=== PATIENT | female | born 1950 | race Two or more races ===

== ENCOUNTER 2024-08-28 20:48 | Emergency (ER) | payer OTHER ==
[~2024-08-28] VITALS: Ht 160 cm; Wt 68.6 kg
[2024-08-28] MEDS: DexAMETHasone SOD PHOS 10MG/1ML VIAL INJ IM ONE (21:37)
[2024-08-28] MEDS: ALBUTEROL SULF 2.5 MG/0.5ML(0.5%) NEB SOLN NEB ONE (21:38)
[2024-08-28] MEDS: IPRATROPIUM BROM 0.5 MG/2.5ML INH SOL NEB ONE (21:38)
[2024-08-28 21:40] VITALS: PULSE 86; RESP 18; O2SAT 92
--- NOTE | 2024-08-28 22:00 | DVH ---
CHEST RADIOGRAPH Indication: COUGH, SATS 92 ON ROOM AIR Technique: Single frontal view of the chest was obtained COMPARISON: None FINDINGS: Lines and Tubes: None Lungs: Clear Pleura: No effusion. No pneumothorax. Cardiomediastinal contours: Unremarkable Bones: Unremarkable IMPRESSION: No abnormality demonstrated.
[2024-08-28 22:05] LABS: COVID19 ANTIGEN SOFIA FIA NEGATIVE (NEGATIVE); Rapid Influenza A Negative (Negative); Rapid Influenza B Negative (Negative)
[2024-08-29] MEDS ORDERED: BENZ100C97 PO (00:07)
[2024-08-29] MEDS ORDERED: ALBU108A5 IN (00:07)
--- NOTE | 2024-08-29 00:07 | ED.PDOC ---
SOB-HPI HPI Comments This patient is a 74-year-old female with a 30+ year pack history of smoking who arrives to the ED today with complaints of consistent coughing over the past five days. Patient states the cough and came on and she is in coughing throughout the day ever since. Patient denies any fever nausea or vomiting. Patient denies any ill feelings. Patient denies any definitive shortness a breath concerns. Vital signs were stable on arrival. Chief Complaint: Shortness of Breath Time Seen by MD: 21:11 Reviewed notes: Nurses Notes Information Source: Patient Mode of Arrival: Ambulatory Severity: Moderate Timing: Days Duration: Since onset Context: At Rest PE Risk Factors: None History of: None Prehospital treatment: None Modifying Factors: Nothing Associated Signs and Symptoms: Cough If cough with SOB: Non-Productive Past Medical History PAST MEDICAL HISTORY: Denies Surgical History: Denies all surgeries DIETETIC TECHNICIAN REGISTERED History: No Pertinent DIETETIC TECHNICIAN REGISTERED History Family History Family History: Reviewed,noncontributory to illness, No family hx of Cancer, No family hx of DM, No family hx of Heart spencer, No family hx of HTN, No family hx ofKidney spencer, No family hx of Liver spencer, No family hx of Lung spencer, No family hx of Stroke Social History Smoker: Cigarettes, Greater Than 1 Pack/Day Alcohol: Denies ETOH Use Drugs: Denies Drug Use Lives In: Home Constitutional: denies: chills, diaphoresis, fatigue, fever, malaise, sweats, weakness, others EENTM: denies: blurred vision, double vision, ear bleeding, ear discharge, ear drainage, ear pain, ear ringing, eye pain, eye redness, hearing loss, mouth pain, mouth swelling, nasal discharge, nose bleeding, nose congestion, nose pain, photophobia, tearing, throat pain, throat swelling, voice changes, others Respiratory: reports: cough; denies: hemoptysis, orthopnea, SOB at rest, shortness of breath, SOB with excertion, stridor, wheezing, others Cardiovascular: denies: chest pain, dizzy spells, diaphoresis, Dyspnea on exertion, edema, irregular heart beat, left arm pain, lightheadedness, palpitations, PND, syncope, others Gastrointestinal: denies: abdomen distended, abdominal pain, blood streaked bowels, constipated, diarrhea, dysphagia, difficulty swallowing, hematemesis, melena, nausea, poor appetite, poor fluid intake, rectal bleeding, rectal pain, vomiting, others Genitourinary: denies: abnormal vagina bleeding, burning, dyspareunia, dysuria, flank pain, frequency, hematuria, incontinence, pain, , vagina discharge, urgency, others Neurological: denies: dizziness, fainting, headache, left sided numbness, left sided weakness, numbness, paresthesia, pre-existing deficit, right sided numbness, right sided weakness, seizure, speech problems, tingling, tremors, weakness, others Musculoskeletal: denies: back pain, gout, joint pain, joint swelling, muscle pa in, muscle stiffness, neck pain, others Integumetry: denies: bruises, change in color, change in hair/nails, dryness, laceration, lesions, lumps, rash, wounds, others Allergic/Immunocompromised: denies: Difficulty Healing, Frequent Infections, Hives, Itching, others Hematologic/Lymphatic: denies: anemia, blood clots, easy bleeding, easy bruising, swollen glands, others Endocrine: denies: excessive hunger, excessive sweating, excessive thirst, excessive urination, flushing, intolerance to cold, intolerance to heat, unexplained weight gain, unexplained weight loss, others Psychiatric: denies: anxiety, bipolar disorder, depression, hopeless, panic disorder, schizophrenia, sleepless, suicidal, others Physical Exam General Appearance: Mild Distress (Patient had some mild distress at time of evaluation. I did not visualize the patient coughing throughout my evaluation.), Normal HEENT: Normal ENT Inspection, Pharynx Normal, TMs Normal Neck: Full Range of Motion, Non-Tender, Normal, Normal Inspection Respiratory: Chest Non-Tender, Lungs Clear, No Accessory Muscle Use, No Respiratory Distress, Normal Breath Sounds, Other ( Unremarkable auscultation bilateral lung masters.) Cardiovascular: No Edema, No JVD, No Murmur, No Gallop, Normal Peripheral Pulses, Regular Rate/Rhythm Breast Exam: Deferred Gastrointestinal: No Organomegaly, Non Tender, No Pulsatile Mass, Normal Bowel Sounds, Soft Genitalia: Deferred Pelvic: Deferred Rectal: Deferred Extremities: NOT DONE Neurologic: Alert, No Motor Deficits, Normal Affect, Normal Mood, No Sensory Deficits Cerebellar Function: Normal Reflexes: Normal Skin: Dry, Normal Color, Warm Lymphatic: No Adenopathy Was a procedure done? Was a procedure done?: No Differential Dx Differential Diagnosis: Bronchitis, Pneumonia, URI, Other ( Cough) X-Ray, Labs, Meds, VS Vital Signs Date Time Temp Pulse Resp B/P (MAP) Pulse Ox O2 Delivery O2 Flow Rate FiO2 08/28/24 21:40 86 18 92 Nasal Cannula* 2 28 08/28/24 21:39 16 92 Room Air* 0 21 08/28/24 21:05 98.8 86 18 120/79 (93) 92 Lab Test 08/28/24 21:13 Range/Units Influenza Type A Antigen Negative Negative Influenza Type B Antigen Negative Negative SARS-CoV-2 Antigen (Rapid) Negative NEGATIVE Current Medications Medications (Trade) Dose Ordered Sig/Oscar Route Start Time Stop Time Status Last Admin Albuterol (Ventolin Medneb) 2.5 mg ONCE ONCE NEB 08/28/24 21:15 08/28/24 21:16 DC 08/28/24 21:38 Ipratropium Conley (Atrovent Medneb) 0.5 mg ONCE ONCE NEB 08/28/24 21:15 08/28/24 21:16 DC 08/28/24 21:38 Dexamethasone Sodium Phosphate (Decadron Injection) 10 mg ONCE ONCE IM 08/28/24 21:15 08/28/24 21:16 DC 08/28/24 21:37 X-Ray, Labs, Meds, VS Comment Patient will responded well to medication dispensed to the ED. All studies performed the ED were evaluated by me personally. Swabs studies were unremarkable for COVID-19 or influenza. Chest x-ray was unremarkable for any consolidation or signs of emphysema, COPD or pulmonary fibrosis. patient stated she stopped smoking five days ago due to the coughing. Advised her that she may be developing a chronic copy this smoking and that she would be well served to cease tobacco use tell stave off the cough. Patient will be provided with some medication and has been advised to follow up with the primary care provider. Time of 1ST Reevaluation: 00:04 Reevaluation 1ST: Improved Consultation: PCP Patient Education/Counseling: Diagnosis, Treatment Family Education/Counseling: Diagnosis, Treatment Departure 1 Departure Time of Disposition: 00:05 Impression: Primary Impression: Cough in adult Disposition: 01 HOME / SELF CARE / HOMELESS Condition: Stable Additional Instructions: Advise utilizing medication as needed for symptomatic relief. Patient should follow up with the primary care provider for discussions related to today's visit. e-Prescriptions Albuterol Sulfate (Albuterol Sulfate Hfa) 108 Mcg/Act Aer 108 MCG IN Q4HP PRN, #1 AER Prov: JUAN M LUCAS PAC 08/29/24 Benzonatate (Benzonatate) 100 Mg Cap 1 CAP PO Q8HP PRN, #20 CAP Prov: JUAN M LUCAS PAC 08/29/24 Discharged With: Self, Spouse Critical Care Note Critical Care Time?: No Stability Stability form required: No Heart Score Heart Score: Heart Score Response (Comments) Value History N/A 0 EKG N/A 0 Age N/A 0 Risk Factors N/A 0 Troponin N/A 0 Total 0 JUAN M LUCAS PAC Aug 29, 2024 00:07
[2024-08-29 00:29] VITALS: BP 120/70; TEMP 98.4
[2024-08-29 00:30] VITALS: PULSE 81; RESP 20; O2SAT 93
== END 2024-08-29 00:49 | disposition home or self-care (01) ==
LOC: ER 20:48
DX: R05.9 Cough, unspecified (principal); F17.210 Nicotine dependence, cigarettes, uncomplicated; Z20.822 Contact with and (suspected) exposure to COVID-19
CPT/HCPCS: 36415; 71045; 87426; 87804; 94640; 96372; 99284; J1100